=== PATIENT | male | born 1965 | race Caucasian/White ===

== ENCOUNTER 2024-01-20 05:55 | Day surgery (SDC) | payer BC, SELFPAY ==
[2024-01-07 06:35] LABS: % Basophils 0.3 % (0-2); % Eosinophils 3.3 % (0-6); % Immature Granulocytes 0.3 % (0-0.5); % Lymphocytes 22.4 % (20.5-51.1); % Monocytes 12.3 % (1.7-9.3); % Neutrophils 61.4 % (42.2-75.2); Absolute Eosinophils 0.2 10^3/uL (0-0.7); Absolute Lymphocytes 1.3 10^3/uL (1.2-3.4); Absolute Monocytes 0.7 10^3/uL (0.1-0.6); Absolute Neutrophils 3.5 10^3/uL (1.4-6.5); Hematocrit 40.8 % (39.0-52.0); Hemoglobin 13.9 g/dL (13.0-18.0); Mean Corp Hgb Conc. 34.1 g/dL (33.0-37.0); Mean Corpuscular Hgb 29.1 pg (27.0-31.0); Mean Corpuscular Volume 85.4 fL (80.0-94.0); Mean Platelet Volume 10.3 fL (7.4-10.4); Nucleated Red Blood Cells % 0 % (-); Platelet Count 248 10^3/uL (130-400); Red Blood Cell Count 4.78 10^6/uL (4.70-6.10); Red Cell Dist. Width 12.8 % (11.5-14.5); White Blood Cell Count 5.8 10^3/uL (4.8-10.8)
[2024-01-07 06:48] LABS: ALT (SGPT) 22 U/L (0-50); AST (SGOT) 21 U/L (17-59); Albumin 3.8 g/dl (3.5-5.0); Alkaline Phosphatase 76 U/L (38-126); Blood Urea Nitrogen 27 mg/dl (9-20); Calcium 9.4 mg/dl (8.4-10.2); Carbon Dioxide 24 mmol/L (22-30); Chloride 109 mmol/L (98-107); Glucose 112 mg/dl (70-99); Magnesium 2.3 mg/dl (1.6-2.3); Sodium 138 mmol/L (135-145); Total Bilirubin 0.9 mg/dl (0.2-1.3); Total Protein 6.8 g/dl (6.3-8.2); eGFR > 60.00
[2024-01-07 06:50] LABS: INR 1.19; PT 15.2 Sec (11.4-14.6)
[2024-01-20] VITALS (22 sets, daily range): BP systolic 127–168; BP diastolic 71–98; BMI 40.0
[2024-01-20 06:34] LABS: Glucose - Point of Care 121 mg/dl (70-99)
--- NOTE | 2024-01-20 07:05 | PTCARENOTE ---
Dr Cummings ordered tylenol 1gm PO preprocedure. Dr Cummings states there may be an alert about a contraindication to take tylenol with benadryl allergy. Pt states he has taken tylenol in the past without any problems. Dr Cummings states pt ok to take
tylenol pre procedure.
[2024-01-20] MEDS: TYLENOL 1000 MG PO (07:11)
[2024-01-20 08:46] LABS: ACT-LR - POC 266 Seconds (116-155)
[2024-01-20 09:10] LABS: ACT-LR - POC 268 Seconds (116-155)
[2024-01-20 09:32] LABS: ACT-LR - POC 290 Seconds (116-155)
--- NOTE | 2024-01-20 09:53 | ITS.CL.ABL ---
Addendum entered and electronically signed by Kian Yates MD 01/28/24 14:35:
correct date of procedure is 01/20/2024
Original Note:
[employer] - Ablation
Ablation
Procedure Report:
ELECTROPHYSIOLOGY ABLATION STUDY
DATE:: December 22, 2023 REFERRING: Dr. Denzel Contreras
INDICATION: Paroxysmal supraventricular tachycardia in the form of atrial fibrillation. Refractory to Betapace
HISTORY: See H and P. As above
ANTIARRHYTHMIC DRUG: Betapace
PRE-PROCEDURE MARQUISE: No atrial thrombus
PRESENTING RHYTHM: Sinus bradycardia
'TIME-OUT': called and confirmed.
SEDATION/ANESTHESIA: provided via the anesthesia department using general anesthesia (LMA).
INTRAVENOUS/ARTERIAL ACCESS:
Right femoral venous - 8Fr
Left femoral venous - 8 Fr, 6 Fr
Left femoral arterial - 5 Fr
Ultrasound guidance for bilateral femoral vein access was utilized by me to obtain access with demonstration of normal anatomy
CHADS-VASC Score:
HAS-Bled Score
PROCEDURE:
1. A decapolar CS catheter was placed within the CS for mapping and pacing. This was also used as the reference catheter for the 3-D map.
2. The intracardiac ultrasound catheter was positioned in the RA to identify the FO for targeting of transseptal puncture, assist in identification of the pulmonary vein ostia, monitoring pre and post ablation pulmonary vein flow velocities,
monitoring for 'bubble' formation during RF application as a sign of thermal injury, and to monitor for pericardial effusion during mapping and ablation procedure. Left atrial size, LV ejection fraction, and pulmonary vein flows were monitored
pre and post ablation procedure. The other valves were inspected and found to be free of significant regurgitation or stenosis.
3. Half of the calculated heparin bolus was administered prior to the first transeptal puncture. Transseptal puncture was performed to diagnose RA and LA pressure so that safety of LA mapping and ablation could be further assessed, and to access
the left atrium and pulmonary veins for mapping and ablation. This entailed advancing an 8 Fr SL-1 sheath with dilator into the superior vena cava and withdrawing both (monitoring intracardiac ultrasound, fluoroscopy and tip pressure) with the tip
oriented toward the atrial septum. The fossa ovalis was engaged (indicated by sudden displacement of the sheath tip as well as tenting of the fossa seen on intracardiac ultrasound). Left atrial access required a pass with the [place] needle
extended. Left atrial catheter position was confirmed by pressure monitoring (RA mean pressure 8 mm Hg and LA mean pressure 14 mm Hg), LA saturation (99%), as well as fluoroscopy. The sheath was advanced over the dilator and positioned in the
left atrium. This procedure was repeated for the Agilis sheath. The remainder of the calculated heparin bolus was administered and heparin was
infused to maintain ACT at 300 -350 seconds throughout the case.
4. RA pacing was performed via the proximal decapolar poles and LA pacing was performed via the distal decapolr poles.
5. A quadrapolar catheter was first positioned at the His position for His Bundle recording which was tagged via the 3-D Navex sytem, and then passed to the RVA for RV pacing and recording.
6. The 28 mm cryoballoon and 15 mm octapolar G recording catheter placed in each of the LIPV, LSPV, RSPV and the RIPV.
7. Next, a 3-D map was created using Navex. A 3-D reconstructed CT image was compared to the 3-D Navex map to assist in anatomic interpretation, mapping and ablation. The CT image and the NavX image were fused.
8. 2 distinct 3-minute freezing applications were given ostially at the left common ostium at the superior and inferior regions with a dedicated 2-minute lesion to the inferior portion of the common ostium and into deep lesions on the balwinder for 3
minutes and 2 minutes. This led to antral isolation. No cooling of esophagus was noted. Right superior pulmonary vein was given 2 distinct 3-minute freezing applications and then a third treatment freezing application of the balwinder. The right
inferior pulmonary vein two 3-minute applications were given with a dedicated 33-minute lesion to the balwinder. This led to [place] isolation through the balwinder of the right without loss of phrenic nerve capture. Entrance and exit block was
confirmed and then follow-up EP study did not demonstrate any other inducible arrhythmia.
9. Normal sinus node and AV node function noted.
TOTAL FLOURO TIME: 17.6 minutes 470 mg
TOTAL RF DURATION: 0 minutes
REVERSAL OF HEPARIN: 40 mg of protamine, slow IV administration
COMPLICATIONS:
None
Intracardiac US shows no pericardial effusion post ablation.
SUMMARY:
Complex left atrial mapping and ablation.
Isolation of all 4 pulmonary veins as above. The left common ostium was isolated in a segmental fashion.
RECOMMENDATIONS:
1. Admit to monitored bed.
2. Resume anticoagulation
3. Out of bed 4 hours and consider same-day discharge
4. Discontinue sotalol
Copy to: Dr. Denzel Contreras
[2024-01-20] MEDS: SUBLIMAZE 25 MCG IV (10:41)
[2024-01-20 10:49] LABS: Glucose - Point of Care 137 mg/dl (70-99)
[2024-01-20] MEDS: ANESTHETIC LOZENGE 1 LOZENGE PO (11:10)
[2024-01-20] MEDS: COZAAR 50 MG PO (12:00)
--- NOTE | 2024-01-20 14:16 | W.PN.UPDATE ---
Update Note
Progress Note Update
58 yo WM s/p PVI (same day) He has some mild chest heaviness with deep inspiration, no sob, adonis diet, voiding, amb w/o dizziness, b/l groins c/d/i no HT< soft, EKG SR. He will continue OAC Eliquis dose at 4pm at home. He will stop sotalol. He will
hold metformin post procedure, resume on sat am. Activity restrictions reviewed. He will f/u Dr. Marina in 2 mo. He is for d/c home after 230p.
SUMMARY:�
Complex left atrial mapping and ablation.
Isolation of all 4 pulmonary veins as above.� The left common ostium was isolated in a segmental fashion.
RECOMMENDATIONS:
1. Admit to monitored bed.
2. Resume anticoagulation
3.� Out of bed 4 hours and consider same-day discharge
4.� Discontinue sotalol
Copy to: Dr. Denzel Marina
--- NOTE | 2024-01-20 14:33 | PTCARENOTE ---
Pt's diastolic BP has been in the 90's. Pt did receive his losartan earlier today. Jennifer Lee NP made aware and states ok for discharge.
== END 2024-01-20 14:41 | disposition home or self-care (01) ==
LOC: CATH 05:55
PROVIDERS: ATTENDING PHYSICIAN Internal Medicine Cardiovascular Disease; FAMILY PHYSICIAN Family Medicine; OTHER PHYSICIAN Student in an Organized Health Care Education/Training Program
DX: I10 Essential (primary) hypertension (principal); E11.9 Type 2 diabetes mellitus without complications; R06.09 Other forms of dyspnea; R42 Dizziness and giddiness; I48.0 Paroxysmal atrial fibrillation; G47.33 Obstructive sleep apnea (adult) (pediatric); Z86.14 Personal history of Methicillin resistant Staphylococcus aureus infection; E66.9 Obesity, unspecified; Z68.38 Body mass index [BMI] 38.0-38.9, adult; Z79.01 Long term (current) use of anticoagulants
CPT/HCPCS: C1766; C1894; C1769; C1730; C1893; C1733; C1892; C1759; 36415; 75572; 76937; 80053; 82962; 83735; 85025; 85347; 85610; 86850; 86900; 86901; 93005; 93655; 93656; Q9967